=== PATIENT | female | born 1970 | race Caucasian/White ===

== ENCOUNTER → 2017-04-22 | Day surgery (SDC) | payer BC ==
[~2017-04-22] MED LIST: BUPIVACAINE/EPINEPHRINE 0.5% PF 10 ML VIAL ONE; KETOROLAC TROMETHAMINE 30 MG/ML (IVP) VIAL IV PUSH ONE; LACTATED RINGER'S 1000 ML INJ 1,000 ML ONE; MIDAZOLAM HCL 2 MG/2 ML VIAL ONE; ONDANSETRON HCL 4 MG/2 ML VIAL IV PUSH ONE; PROPOFOL 200 MG/20 ML AMP IV ONE; SCOPOLAMINE 1.5 MG PATCH ONE; ceFAZolin INJ 1,000 MG VIAL ONE
--- NOTE | 2017-04-22 12:02 | MP ---
cc: MAGDALENO KWOK DATE OF SURGERY: 04/22/2017 DATE OF : 1970 PREOPERATIVE DIAGNOSIS 1. Premenopausal menorrhagia. 2. Thickened endometrial stripe on imaging. 3. Inability to get in-office sampling. POSTOPERATIVE DIAGNOSIS 1. Premenopausal menorrhagia. 2. Thickened endometrial stripe on imaging. 3. Inability to get in-office sampling. 4. Post-op day #0. INDICATION Mary Tavares is a 46-year-old, 3, para 3-0-0-3 who, starting in December 2016, had new severely heavy and continuous menstrual type bleeding. At its heaviest the patient was soaking a pad every 30 minutes. She was seen in the office for evaluation. Unable to obtain in-office sampling due to difficult patient anatomy. The endometrial stripe was visualized to be thickened on ultrasound. The patient was started on Provera which lessened the bleeding but did not make it stop. The patient desired definitive management with endometrial sampling and NovaSure ablation, and as such she was scheduled. PROCEDURE PERFORMED 1. Exam under anesthesia. 2. Diagnostic hysteroscopy. 3. Cervical dilation and endometrial curettage. 4. NovaSure endometrial ablation. SURGEON Magdaleno Kwok MD [employer]INE[employer] MANAGER Eder Roberto, MS III. ANESTHESIA General using LMA. ESTIMATED BLOOD LOSS 5 mL. URINE OUTPUT 200 mL of clear urine drained by in-and-out sterile red rubber catheter at the beginning of the procedure. SPECIMEN Endometrial curettings. IV FLUID REPLACEMENT 400 mL. PROPHYLAXIS Ancef one gram IV was given preoperatively. SCDs were on and functioning throughout the entire case. INTRAOPERATIVE FINDINGS Normal external female genitalia. Cervix is multiparous, smooth, approximately 4 cm in width. The uterus is palpated at approximately 7-8 weeks' size, and no adnexal masses are appreciated. On hysteroscopic exam there is no discrete mass but just generally the endometrial cavity has a fluffy appearance to it. On hysteroscopic evaluation after ablation a complete roseanne in all areas was noted. PROCEDURE IN DETAIL After reviewing the informed consent the patient was taken to the operating suite where a timeout was performed to identify the patient, the planned procedure and any known allergies to drugs or drug products. The patient was then placed in dorsal supine position and general anesthesia using LMA was administered without difficulty and found to be adequate. The patient was then gently elevated into high lithotomy position in candy-cane stirrups. The perineum was prepped and draped in normal sterile fashion and a sterile red rubber catheter was used to drain the bladder. Attention was turned vaginally where a sterile speculum was placed. The cervix was visualized, grasped on the anterior lip with a single-tooth tenaculum. The uterus was sounded to 8.5 cm. Cervical length was felt to be 4 cm, giving a cavity length of 4.5 cm. Progression of cervical dilators was utilized to accommodate the diagnostic scope which was then introduced without complication. The endometrial cavity was visualized with results as listed above. The hysteroscope was removed. Sharp curettage was performed until a good cry was felt in all areas. Endometrial curettage sampling was sent off to be evaluated by the pathology lab. A NovaSure device was introduced. It was properly seated, passed all tests. The cavity width was noted to be 4.7 cm. The device was activated for a total of 95 seconds. The device was removed without complication after procedure completed. The hysteroscope was reintroduced through the cervix and a uniform global roseanne was noted in the endometrial cavity. The hysteroscope was removed as was the tenaculum and speculum. No bleeding was noted. The procedure concluded at this point. The patient was laid back in dorsal supine position from lithotomy position. She was awoken from anesthesia without complication. She will be discharged to home today. She has office follow-up and is aware of instructions for post care. MD JAYSON Ervin/MONI /11:40 AM /11:47 AM ABBY
== END | disposition home or self-care (01) ==
LOC: ESDC 09:17
PROVIDERS: ATTEND Obstetrics & Gynecology
DX: N92.4 Excessive bleeding in the premenopausal period (principal)
CPT/HCPCS: 00952; 58563; 88305; J0690; J1885; J2250; J2405; J3010; J7120